=== PATIENT | female | born 1990 | race Caucasian/White ===

== ENCOUNTER 2016-09-13 11:27 | Emergency (ER) | payer OTHER ==
--- NOTE | 2016-09-13 12:14 | EDPHY ---
H & P Stated Complaint: Bilateral Low Back since yesterday. - Personal History LMP (Females 10-55): 8-14 Days Ago Current Tetanus/Diphtheria Vaccine: Unsure Current Tetanus Diphtheria and Acellular Pertussis (TDAP): Unsure Tetanus Vaccine Date: unsure - Medical/Surgical History Hx Asthma: Yes Hx Chronic Respiratory Disease: No Hx Diabetes: No Hx Cardiac Disease: No Hx Renal Disease: No Hx Cirrhosis: No Hx Alcoholism: No Hx HIV/AIDS: No Hx Splenectomy or Spleen Trauma: No Other PMH: MEDICAL- ASTHMA, MARFAN SYNDROME (Loeys-Negro), VERTEBRAL ARTERY DISSECTION. SURGICAL- ADNOIDS, HERNIA RPR, foot surgery - Social History Smoking Status: Never smoked Time Seen by Provider: 09/13/16 11:49 Constitutional: Initial Vital Signs Temperature (C) 36.6 C 09/13/16 11:31 Heart Rate 76 09/13/16 11:31 Respiratory Rate 16 09/13/16 11:31 Blood Pressure 116/74 09/13/16 11:31 O2 Sat (%) 94 09/13/16 11:31 O2 Delivery Mode Room Air O2 (L/minute) 2 Allergies/Adverse Reactions: latex Allergy (Severe, Verified 09/13/16 11:36) Hives Home Medications: Medication Instructions Recorded Citalopram Hydrobromide [Celexa] 40 mg PO HS 08/20/13 FEXOFENADINE HCL 180 mg PO DAILY 08/20/13 Fluticasone Propionate [Flonase] 16 gm EACHNARE DAILY 08/20/13 Fluticasone/Salmeter 250/50Mcg 1 puffs IH DAILY 08/20/13 [Advair 250/50 (RX)] Albuterol [Proventil Inhaler] 2 puffs IH Q4 PRN 08/21/13 Albuterol [Proventil Neb] 3 ml IH PRN PRN 08/21/13 EPINEPHrine [Epipen 0.3 MG (RX)] 0.3 mg IM ONCE PRN 08/21/13 Plavix 75 03/19/15 oxyCODONE/APAP 5/325 [Percocet 1 - 2 tab PO Q4-6PRN PRN #14 tab 03/20/15 5/325 (RX)] Metoprolol Tartrate 09/26/15 Cyclobenzaprine [Flexeril] 10 mg PO TID PRN #11 tab 09/13/16 oxyCODONE/APAP 5/325 [Percocet] 1 tab PO Q4-6PRN PRN #11 tab 09/13/16 Medical Decision Making - Diagnostics Imaging: Discussed imaging studies w/ physically impaired teacher Radiologist - Diagnostics Imaging Results: Imaging Impressions Lumbar Spine MRI 09/13/16 12:33 Impression: 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 The most significant level is at L4-L5 with mild spinal canal and [id number] left neural foraminal and mild right neural foraminal narrowing. Please see detailed description by level above. Results discussed with Dr. Layo Donis. MRI shows degenerative change, nothing surgical, worst at 4-5, Nusser 1501. ( Layo Donis) ED Course/Re-evaluation: CHIEF COMPLAINT: Bilateral lower back pain HISTORY OF PRESENT ILLNESS: The patient is a 26 y/o female, with a history of Loeys-Negro syndrome, arriving with her friend complaining of acute onset bilateral lower back pain for the last day. She initially noticed right-sided lumbar back pain that has since spread to both sides of her back and flanks. She denies trauma or other obvious precipitating event. One dose of Percocet did not alleviate her pain at all. She denies radiation down her leg, weakness, numbness, urinary or bowel difficulties. She has a history of scoliosis, but no spinal surgeries. REVIEW OF SYSTEMS: A 10 point review of systems was performed and is negative with the exception of the elements mentioned in the history of present illness. PHYSICAL EXAM: HR, BP, O2 Sat, RR. Temp noted General Appearance: Alert, well hydrated, appropriate, and non-toxic appearing. Head: Atraumatic without scalp tenderness or obvious injury Eyes: Pupils equal, round, reactive to light and accommodation, EOMI, no trauma , no injection. Nose: Atraumatic, no rhinorrhea, clear. Throat: mucus membranes moist. Neck: Supple, nontender, no lymphadenopathy. Respiratory: No retractions, no distress, no wheezes, and no accessory muscle use. Lungs are clear to auscultation bilaterally. Cardiovascular: Regular rate and rhythm, no murmurs, rubs, or gallops. Good capillary refill all extremities. Gastrointestinal: Abdomen is soft, nontender, non-distended, no masses, no rebound, no guarding, no peritoneal signs. Musculoskeletal: Normal active ROM of all extremities, atraumatic. Neurological: Alert, appropriate, and interactive. Nonfocal neuro. Skin: No rashes, good turgor, no nodules on palpation. Past medical history: Loeys-Negro syndrome, vertebral artery dissection - Plavix Past surgical history: Hernia repair Family history: noncontributory Social history: Friend at bedside DIAGNOSTICS/PROCEDURES/CRITICAL CARE TIME: Lumbar spine MRI: DIFFERENTIAL DIAGNOSIS: The differential diagnosis for the patient's back pain included but was not limited to musculoskeletal pain, epidural abscess, herniated disk, spinal fracture, and intra-abdominal causes including urinary system. MEDICAL DECISION MAKING: This is a 26 y/o female with a connective tissue disease presenting for evaluation of acute onset lower back pain for the last day. Her exam is unremarkable. Due to her Loeys-Negro syndrome she is more susceptible ligamentous weakness, so I recommended a lumbar spine MRI. IV established. 30mg IV Toradol and 1mg IV Dilaudid administered for pain. At change of shift I am signing this patient out to Dr. Donis to interpret the MRI. If there is nothing acute this patient will simply be discharged to follow up with a back specialist. (Golden Mitchell) Other Provider: Care assumed from Dr. Mitchell at 2:50 p.m., plan to discharge the patient if MRI does not show surgical lesion. Discussed results with patient 1505. Prescriptions written for 11 Percocet and 11 Flexeril. (Layo Donis) - Data Points Medications Given: Discontinued Medications Hydromorphone HCl (Dilaudid) 1 mg IVP EDNOW ONE Stop: 09/13/16 12:23 Last Admin: 09/13/16 12:53 Dose: 1 mg Ketorolac Tromethamine (Toradol) 30 mg IVP EDNOW ONE Stop: 09/13/16 12:21 Last Admin: 09/13/16 12:53 Dose: 30 mg Departure - Departure Disposition: Home, Routine, Self-Care Clinical Impression: Lumbar back pain Qualifiers: Chronicity: acute Back pain laterality: bilateral Sciatica presence: without sciatica Qualified Code(s): M54.5 - Low back pain Condition: Good Instructions: Acute Low Back Pain (ED) Additional Instructions: 1. You can also try applying a heating pad to the site as well. 2. Follow up with your primary care provider or back specialist for unimproved pain over the next week. 3. Return to the ED for severe pain, chest pain, shortness of breath, or any other worsening of condition. Referrals: Iwona Lemus MD [Primary Care Provider] - As per Instructions Silvestre Finch MD [Medical Doctor] - As per Instructions Prescriptions: Cyclobenzaprine [Flexeril] 10 mg PO TID PRN #11 tab PRN Reason: back pain oxyCODONE/APAP 5/325 [Percocet] 1 tab PO Q4-6PRN PRN #11 tab PRN Reason: Pain Report Scribed for: Golden Mitchell Report Scribed by: Francoise Dooley Date of Report: 09/13/16 Time of Report: 12:30
[2016-09-13] MEDS ORDERED: KETOROLAC 30 MG/1 ML SDV IVP ONE (12:20)
[2016-09-13] MEDS ORDERED: HYDROmorphONE/DILAUDID 1 MG/ML SYR IVP ONE (12:22)
[2016-09-13 12:59] VITALS: O2SAT 99
[2016-09-13 15:20] VITALS: BP 100/55; PULSE 68; RESP 20; TEMP 98.1
== END 2016-09-13 15:30 | disposition home or self-care (01) ==
DX: M54.5 Low back pain (principal); J45.909 Unspecified asthma, uncomplicated; Z79.82 Long term (current) use of aspirin
CPT/HCPCS: 96374; J1170; J1885

== ENCOUNTER → 2018-11-04 | Outpatient (CLI) | payer OTHER | LOC: BMCIMAGING 10:53 ==